=== PATIENT | female | born 1965 | race Caucasian/White ===

== ENCOUNTER 2021-09-25 15:17 | Emergency (ER) | payer BC, SELFPAY ==
--- NOTE | ~2021-09-25 | XR_ITS ---
EXAMINATION: XR chest 2V 09/25/2021 15:56 INDICATION: Chest pain and shortness of breath. Nausea and vomiting. PROCEDURE: PA and lateral views of the chest COMPARISON: 08/03/2008 FINDINGS: The lungs are clear. The cardiomediastinal silhouette is within normal limits. There are no pleural effusions. There is no pneumothorax suspected. IMPRESSION: 1: NO ACUTE CARDIOPULMONARY DISEASE. Reviewed, dictated and finalized at location A. C JOURNALIST
--- NOTE | ~2021-09-25 | CT_ITS ---
EXAMINATION: CT abdomen pelvis wo con DATE: 09/25/2021 17:18 INDICATION: Abdominal pain, nausea and vomiting TECHNIQUE: Computed tomography (CT) of the abdomen and pelvis was performed without intravenous contr ast. The dose-length product was 291.04 mGy-cm. Automated exposure control and iterative reconstructi on technique were employed. COMPARISON: None. FINDINGS: Lung bases are unremarkable. Heart size normal. No significant pleural or pericardial effus ion. The liver, spleen, pancreas, adrenal glands and right kidney are unremarkable. There is a 3 cm l eft renal cyst. No renal stones or hydronephrosis. Nonobstructive bowel gas pattern. Bladder is diste nded. Status post hysterectomy. Nonobstructive bowel gas pattern. No evidence for diverticulitis or a ppendicitis. Mild lower lumbar spondylosis. No acute osseous abnormality. IMPRESSION: 1. No acute abdominal abnormality. Reviewed, dictated and finalized at location A. S HANGER
[2021-09-25 15:29] VITALS: BP 138/86; PULSE 114; RESP 20; TEMP 36.7; O2SAT 97
--- NOTE | 2021-09-25 15:35 | ECG_ITS ---
Measurements Intervals Anderson Rate: 92 P: 76 MS: 152 QRS: 35 QRSD: 88 T: 49 QT: 341 QTc: 422 Interpretive Statements SINUS RHYTHM POSSIBLE LEFT ATRIAL ENLARGEMENT BASELINE ARTIFACT- I, II, III, AVR, AVL, AVF BORDERLINE ECG Electronically Signed On 09-25-2021 17:39:29 [employer] by Hayes Charlton D.O.
[2021-09-25 15:45] VITALS: BP 124/83; PULSE 94; RESP 18; O2SAT 99
[2021-09-25 16:08] LABS: Basophils Percent Auto 0.3 % (0.2-1.2); Eosinophils Absolute Auto 0.1 K/mm3 (0-0.3); Hematocrit 44.9 % (37.0-47.0); Hemoglobin 15.5 g/dL (12.0-15.0); Immature Granulocyte Absolute 0.05 K/mm3 (0.00-0.031); Immature Granulocyte Percent A 0.4 % (0-0.5); Lymphocytes Absolute Auto 2.48 K/mm3 (0.9-3.2); Lymphocytes Percent Auto 20.4 % (18.3-44.2); Mean Corpuscular HGB Conc 34.5 g/dl (32-36); Mean Corpuscular Hemoglobin 32.8 pg (26-34); Mean Corpuscular Volume 94.9 fl (80-100); Mean Platelet Volume 8.9 fl (7.4-10.4); Monocytes Absolute Auto 0.8 K/mm3 (0.1-0.6); Monocytes Percent Auto 6.6 % (2.6-8.5); Neutrophils Absolute Auto 8.7 K/mm3 (1.3-6.7); Neutrophils Percent Auto 71.3 % (45.5-73.1); Platelet Count Result 373 k/mm3 (150-375); Red Blood Count 4.73 M/mm3 (4.2-5.4); White Blood Count 12.2 K/mm3 (4.5-10.0)
--- NOTE | 2021-09-25 16:09 | PC.NURSE ---
Called lab and spoke to Yang to add on D Dimer and BNP
[2021-09-25 16:18] LABS: INR 0.9; Prothrombin Time 11.9 Seconds (11.1-14.7)
[2021-09-25 16:19] LABS: Partial Thromboplastin Time 32.4 SECONDS (22.3-36.8)
[2021-09-25 16:21] LABS: Alanine Aminotransferase 32 U/L (4-35); Albumin Level 4.7 g/dL (3.5-5.1); Alkaline Phosphatase 102 U/L (38-126); Anion Gap 8 mmol/L (8-16); Aspartate Amino Transferase 33 U/L (14-36); Bilirubin,Total 0.4 mg/dL (0.2-1.3); Blood Urea Nitrogen 9 mg/dL (7-17); Calcium 9.8 mg/dL (8.4-10.2); Carbon Dioxide 28 mmol/L (22-30); Chloride 102 mmol/L (98-107); Estimated CRCL calculation 78 ml/min; Estimated Glomerular Filt Rate > 60; Glucose 103 mg/dL (65-110); Lipase 54 U/L (23-300); Sodium 138 mmol/L (137-145)
[2021-09-25] MEDS: ONDANSETRON INJ 4 MG/2 ML VIAL IV PUSH (16:25)
[2021-09-25] MEDS: FAMOTIDINE 20 MG/2 ML VIAL IV PUSH (16:25)
[2021-09-25 16:33] LABS: NT Pro B Type Natriuretic Pept 28 pg/mL (5-100); Troponin I < 0.012 ng/mL (0.000-0.034)
--- NOTE | 2021-09-25 16:34 | ED.CHESTPAIN ---
HPI - Chest Pain General Chief Complaint: Chest Pain Stated Complaint: chest pain, nausea Time Seen by Provider: 09/25/21 16:02 Source: patient Mode of arrival: ambulatory Limitations: no limitations History of Present Illness HPI narrative: This is a 56 year old female that presents to the ER for multiple complaints. Ongoing for months. Reports chest pain, nausea and vomiting, and shortness of breath. Reports a band-like pain in her upper abdomen and lower chest. Reports she recently had a FAYE resection for lung cancer and has been having these symptoms since. She has been evaluated at multiple hospitals for this. She came in today as her nausea and vomiting has been worse over the last couple of days. Denies fever, cough, or dysuria. Related Data Allergies Allergy/AdvReac Type Severity Reaction Status Date / Time Contrast Media Allergy Mild Uncoded 08/03/08 18:36 IVP DYE Allergy Mild Uncoded 08/03/08 18:36 Review of Systems Review of Systems: CONSTITUTIONAL: Denies fever CARDIOVASCULAR: Reports chest pain. Denies edema. RESPIRATORY: Reports dyspnea. Denies cough GASTROINTESTINAL: Reports abdominal pain, nausea, vomiting, and diarrhea. GENITOURINARY: Denies dysuria PSYCHIATRIC: Reports anxiety and depression. All systems reviewed & are unremarkable except as noted in HPI and below PMFSH Past Medical History Medical History (Updated 09/25/21 @ 19:23 by Laura Williamson PA-C) History of anxiety History of depression History of gastroesophageal reflux (GERD) History of hypertension History of lung cancer Social History Social History (Updated 09/25/21 @ 16:51 by Laura Williamson PA-C) Smoking status: Current some day smoker Exam Narrative: GENERAL: Well-appearing, well-nourished, and in no acute distress. HEAD: Normocephalic, atraumatic. EYES: EOMI. ENT: Nares clear, no rhinorrhea or epistaxis. Mucous membranes moist. Oropharynx without tonsillar hypertrophy exudate or other lesions. Bilateral TMs pearly elizabeth non-bulging NECK: Supple. No adenopathy or masses. CHEST: Clear to auscultation. No respiratory distress. No wheezes rales or rhonchi HEART: Regular rate and rhythm. No murmur heard. Normal peripheral pulses. ABDOMEN: Soft, nondistended, normal active bowel sounds. Mild tenderness to palpation throughout the upper abdomen, without guarding EXTREMITIES: Normal range of motion. No edema. SKIN: Warm, dry, no rash. NEURO: No focal deficits. Alert and oriented x3. PSYCH: Normal mood and affect Course Vital Signs Vital signs: Vital Signs Temperature 98.1 F 09/25/21 15:29 Pulse Rate 114 H 09/25/21 15:29 Respiratory Rate 20 09/25/21 15:29 Blood Pressure 138/86 09/25/21 15:29 Pulse Oximetry 97 09/25/21 15:29 Temperature 98.1 F 09/25/21 15:29 Pulse Rate 62 09/25/21 18:10 Respiratory Rate 14 09/25/21 18:10 Blood Pressure 124/80 09/25/21 18:10 Pulse Oximetry 98 09/25/21 18:10 MDM - Chest Pain MDM Narrative Medical decision making narrative: Patient presents to the emergency department for multiple complaints. Reporting chest pain, abdominal pain, nausea, vomiting, and shortness of breath. Symptoms ongoing for weeks. She is afebrile and nontoxic-appearing. Her vitals are stable. Oxygen saturation has remained normal on room air. CBC with mild leukocytosis to 12.2. Also shows mild hemoconcentration. Patient hydrated with IV fluids in the ED. Metabolic panel and lipase without concerning findings. Baseline and 3-hour troponin are negative. No concerning changes on EKG. D-dimer is not elevated. BNP is not elevated. Chest x-ray without acute cardiopulmonary abnormality. CT scan of abdomen and pelvis is without acute findings. Patient was updated on case findings. Patient was hydrated and given antiemetic with improvement. Her heart score is a 2. She is stable and felt appropriate for further outpatient valuation. Instructed to follow-up with her specialists. She was
[2021-09-25 16:36] LABS: D Dimer 0.22 ug/mL (<0.48)
[2021-09-25] MEDS: SODIUM CHLORIDE 0.9% IV 1,000 ML 999 ML IV CONT (17:03)
[2021-09-25 18:10] VITALS: BP 124/80; PULSE 62; RESP 14; O2SAT 98
[2021-09-25 19:05] LABS: Troponin I < 0.012 ng/mL (0.000-0.034)
[2021-09-25 19:48] VITALS: BP 131/83; PULSE 66; RESP 15; O2SAT 100
== END 2021-09-25 19:45 | disposition home or self-care (01) ==
PROVIDERS: Physician Assistant; Emergency Provider Emergency Medicine; PCP Family Medicine
DX: R07.9 Chest pain, unspecified (principal); R11.2 Nausea with vomiting, unspecified; C34.92 Malignant neoplasm of unspecified part of left bronchus or lung; K21.9 Gastro-esophageal reflux disease without esophagitis; I10 Essential (primary) hypertension; R94.31 Abnormal electrocardiogram [ECG] [EKG]; F17.200 Nicotine dependence, unspecified, uncomplicated; Z90.2 Acquired absence of lung [part of]
CPT/HCPCS: 36415; 71046; 74176; 80053; 83690; 83880; 84484; 85025; 85380; 85610; 85730; 93005; 96361; 96365; 96375; 99284; J0131; J2405; J7030

== ENCOUNTER 2021-10-10 13:29 | Emergency (ER) | payer BC, SELFPAY ==
--- NOTE | 2021-10-10 15:07 | PC.NURSE ---
No answer when Called @[id number].
== END 2021-10-11 01:56 | disposition left against medical advice (07) ==
LOC: ANHED 15:14
PROVIDERS: PCP Family Medicine
DX: Z53.21 Procedure and treatment not carried out due to patient leaving prior to being seen by health care provider (principal)
CPT/HCPCS: 99199

== ENCOUNTER 2023-08-27 13:10 | Outpatient (CLI) | payer BC, SELFPAY ==
--- NOTE | ~2023-08-27 | XR_ITS ---
XR abdomen/kub 1V 08/27/2023 13:35 INDICATION: Microscopic hematuria TECHNIQUE: KUB COMPARISON: None FINDINGS: Bowel gas pattern is normal. There is no evidence of free air, mass, organomegaly, ascites or obstruction. No abnormal calculi are seen. Calcifications in the pelvis are believed to be phleb oliths. The bones appear intact. IMPRESSION: 1: No acute abdominal abnormality identified. Reviewed, dictated and finalized at location A.
--- NOTE | ~2023-08-27 | CT_ITS ---
EXAMINATION: CT abdomen pelvis wo con DATE: 08/27/2023 13:54 INDICATION: Microscopic hematuria TECHNIQUE: Computed tomography (CT) of the abdomen and pelvis was performed without intravenous contr ast. The dose-length product was 325.67 mGy-cm. Automated exposure control and iterative reconstructi on technique were employed. COMPARISON: CT dated 09/25/2020. FINDINGS: Lung bases unremarkable. Heart size normal. No significant pleural or pericardial effusion. Nonobstructive bowel pattern. No renal or ureteral stones. No hydronephrosis. Bladder is unremarkabl e. Status post hysterectomy. Retroperitoneal lymph nodes are likely reactive. No significant vascular abnormality. No free air or free fluid. Stable 3 cm left renal cyst. Gallbladder not identified, lik francheska surgically absent. Nonobstructive bowel pattern. Moderate-severe lumbar spondylosis. IMPRESSION: 1. No significant change to 3 cm left renal cyst. 2: Stable borderline size retroperitoneal lymph nodes, likely reactive. Reviewed, dictated and finalized at location A.
== END 2023-08-27 13:11 | disposition home or self-care (01) ==
LOC: ANHIMG 13:16
PROVIDERS: PCP Family Medicine; Visit Provider Nurse Practitioner Family
DX: R31.29 Other microscopic hematuria (principal)
CPT/HCPCS: 74018; 74176

== ENCOUNTER 2023-11-26 08:08 | Emergency (ER) | payer BC, SELFPAY ==
--- NOTE | ~2023-11-26 | CT_ITS ---
EXAMINATION: CT diagnostic chest wo con DATE: 11/26/2023 11:05 INDICATION: Hemoptysis. Cough, congestion. Covid-positive. TECHNIQUE: Computed tomography (CT) of the chest was performed without intravenous contrast (history of contrast medium allergy). Automated exposure control and iterative reconstruction technique were e mployed. Exam dose: 366.49 mGy-cm total exam DLP. COMPARISON: 09/25/2021 PA and lateral chest FINDINGS: There is mild focal infiltrate in the posterolateral middle lobe. There is minimal atelecta sis in the dependent right lower lobe. Mild discoid atelectasis or scarring at the lingula. There are mild emphysematous changes. Normal heart size. No pericardial or pleural effusion. No thoracic aortic aneurysm. No hilar or mediastinal mass lesion or lymphadenopathy is detected. Normal morphology of the adrenal glands. The gallbladder appears to be surgically absent. Diffuse idiopathic skeletal hyperostosis of the thoracic spine. No suspicious osteolytic or osteoblas tic lesions. IMPRESSION: Mild emphysematous changes Mild focal infiltrate, posterolateral middle lobe Mild discoid atelectasis or scarring, lingula Minimal dependent right lower lobe atelectasis Reviewed, dictated and finalized at Location [facility]. Reviewed, dictated and finalized at location B. ALYSIS TECHNICIAN
[2023-11-26 08:19] VITALS: BP 173/75; PULSE 96; RESP 20; TEMP 36.8; O2SAT 96
[2023-11-26 09:18] LABS: Influenza A QL RT-PCR Negative (Negative); Influenza B QL RT-PCR Negative (Negative); RSV RNA, RT-PCR Negative (Negative); SARS-CoV-2 RNA PCR Positive (Negative)
[2023-11-26 10:33] VITALS: O2SAT 97
[2023-11-26 10:36] VITALS: BP 146/72; PULSE 82; RESP 18; O2SAT 100
[2023-11-26 10:50] LABS: Basophils Percent Auto 0.4 % (0.2-1.2); Eosinophils Absolute Auto 0.1 K/mm3 (0-0.3); Eosinophils Percent Auto 0.5 % (0-4.4); Hematocrit 38.9 % (37.0-47.0); Hemoglobin 12.7 g/dL (12.0-15.0); Immature Granulocyte Absolute 0.07 K/mm3 (0.00-0.031); Immature Granulocyte Percent A 0.7 % (0-0.5); Lymphocytes Absolute Auto 1.72 K/mm3 (0.9-3.2); Lymphocytes Percent Auto 17.2 % (18.3-44.2); Mean Corpuscular HGB Conc 32.6 g/dl (32-36); Mean Platelet Volume 8.9 fl (7.4-10.4); Monocytes Absolute Auto 0.8 K/mm3 (0.1-0.6); Monocytes Percent Auto 8.2 % (2.6-8.5); Neutrophils Absolute Auto 7.3 K/mm3 (1.3-6.7); Platelet Count Result 419 k/mm3 (150-375); Red Blood Count 4.23 M/mm3 (4.2-5.4)
[2023-11-26 11:01] LABS: Alanine Aminotransferase 34 U/L (6-35); Albumin Level 4.2 g/dL (3.5-5.1); Alkaline Phosphatase 90 U/L (38-126); Anion Gap 8 mmol/L (8-16); Aspartate Amino Transferase 31 U/L (14-36); Bilirubin,Total 0.5 mg/dL (0.2-1.3); Blood Urea Nitrogen 9 mg/dL (7-17); Calcium 9.1 mg/dL (8.4-10.2); Carbon Dioxide 26 mmol/L (22-30); Chloride 106 mmol/L (98-107); Estimated CRCL calculation 100 ml/min; Estimated Glomerular Filt Rate > 60; Glucose 112 mg/dL (65-110); Potassium 3.5 mmol/L (3.4-5.0); Sodium 140 mmol/L (137-145)
[2023-11-26 11:02] LABS: Partial Thromboplastin Time 30.4 SECONDS (22.3-36.8); Prothrombin Time 13.7 Seconds (11.1-14.7)
--- NOTE | 2023-11-26 11:11 | ED.GENADULT ---
HPI - General Adult General Chief complaint: Upper Respiratory Infection Stated complaint: cough Time Seen by Provider: 11/26/23 10:29 History of Present Illness HPI narrative: 58-year-old female with recent COVID illness presented the ED for evaluation after having blood coming from her mouth and nose. Patient does not feel as she was vomiting blood and patient did not feel like she was coughing up blood. at time of evaluation all bleeding has resolved. Related Data Allergies Allergy/AdvReac Type Severity Reaction Status Date / Time Contrast Media Allergy Mild Flushing Uncoded 11/26/23 10:37 IVP DYE Allergy Mild Flushing Uncoded 11/26/23 10:37 Review of Systems Review of Systems: All systems reviewed & are unremarkable except as noted in HPI and below PMFSH Past Medical History Medical History (Updated 11/26/23 @ 12:28 by Luis A Levi MD) History of anxiety History of depression History of gastroesophageal reflux (GERD) History of hypertension History of lung cancer Social History Social History (Updated 09/25/21 @ 16:51 by Laura Williamson PA-C) Smoking status: Current some day smoker Exam Narrative: APPEARANCE: Well appearing, no pain, no distress, well-nourished. HEAD: normocephalic, atraumatic. EYES: PERRLA/EOMI, conjunctivae clear. NOSE: Blood within the bilateral naris no active bleeding EARS:TMS clear with good light reflex. THROAT: Pharynx clear, no exudate. NECK: Supple. No adenopathy, no masses. RESPIRATORY: Airway patent, respirations nonlabored. Clear to auscultation bilaterally, no rales, rhonchi, wheezing. CARDIOVASCULAR: Regular rate and rhythm without murmurs rubs or gallops. ABDOMINAL: Soft, nontender, nondistended, normal bowel sounds MUSCULOSKELETAL: Moves all extremities. Strength/ROM intact, No edema, No calf tenderness. NEURO: Alert. Cranial nerves II through XII intact. Good gait. Good coordination SKIN: Warm, dry. Normal Color Course Course Emergency Course: 58-year-old female present to the emergency department for evaluation of possible epistaxis. Patient has had no further bleeding in the emergency department. Patient is afebrile with no leukocytosis and a stable hemoglobin. Patient was negative for influenza RSV was positive for COVID. Patient had no further epistaxis or bleeding from her mouth in the ED. Patient had a negative digital rectal exam. Patient was encouraged on close follow-up with her primary care physician. Vital Signs Vital signs: Vital Signs Temperature 98.3 F 11/26/23 08:19 Pulse Rate 96 11/26/23 08:19 Respiratory Rate 20 11/26/23 08:19 Blood Pressure 173/75 H 11/26/23 08:19 Pulse Oximetry 96 11/26/23 08:19 Oxygen Delivery Room Air 11/26/23 08:19 Temperature 98.3 F 11/26/23 08:19 Pulse Rate 87 11/26/23 12:23 Respiratory Rate 17 11/26/23 12:23 Blood Pressure 149/71 H 11/26/23 12:23 Pulse Oximetry 98 11/26/23 12:23 Oxygen Delivery Room Air 11/26/23 10:33 Medical Decision Making Differential Diagnosis Differential Diagnosis: Epistaxis, hemoptysis Vital Signs Vital Signs: Vital Signs Temperature 98.3 F 11/26/23 08:19 Pulse Rate 96 11/26/23 08:19 Respiratory Rate 20 11/26/23 08:19 Blood Pressure 173/75 H 11/26/23 08:19 Pulse Oximetry 96 11/26/23 08:19 Oxygen Delivery Room Air 11/26/23 08:19 Temperature 98.3 F 11/26/23 08:19 Pulse Rate 87 11/26/23 12:23 Respiratory Rate 17 11/26/23 12:23 Blood Pressure 149/71 H 11/26/23 12:23 Pulse Oximetry 98 11/26/23 12:23 Oxygen Delivery Room Air 11/26/23 10:33 Lab Data Lab results reviewed: Yes I reviewed the patient's lab results. 11/26/23 10:44 11/26/23 10:44 Labs: Lab Results 11/26/23 11/26/23 Range/Units 08:25 10:44 WBC 10.0 (4.5-10.0) K/mm3 RBC 4.23 (4.2-5.4) M/mm3 Hgb 12.7 (12.0-15.0) g/dL Hct 38.9 (37.0-47.0) % MCV 92.0 (80-100) fl MCH 3
[2023-11-26 12:23] VITALS: BP 149/71; PULSE 87; RESP 17; O2SAT 98
== END 2023-11-26 13:02 | disposition home or self-care (01) ==
PROVIDERS: Emergency Provider Emergency Medicine; PCP Family Medicine
DX: U07.1 COVID-19 (principal); R04.0 Epistaxis; I10 Essential (primary) hypertension; F17.200 Nicotine dependence, unspecified, uncomplicated; Z85.118 Personal history of other malignant neoplasm of bronchus and lung
CPT/HCPCS: 36415; 71250; 80053; 85025; 85610; 85730; 87637; 99284